=== PATIENT | male | born 1950 | race Caucasian/White ===

== ENCOUNTER 2018-07-29 05:42 | Outpatient (CLI) | payer MEDICARE ==
[2018-07-29 12:00] LABS: Hemoglobin 15.9 g/dL (14.0-18.0); Mean Corpuscular Hemoglobin 31.3 pg (27.0-31.0); Mean Platelet Volume 7.2 fL (7.4-10.4); Platelet Count 326 thou/uL (130-400); RBC Distribution Width 11.7 % (11.5-14.5); Red Blood Cell (RBC) Count 5.08 mill/uL (4.70-6.10); White Blood Cell (WBC) Count 7.4 thou/uL (4.8-10.8)
[2018-07-29 12:09] LABS: PTT 28.3 SEC (22.9-36.1)
[2018-07-29 12:19] LABS: Anion Gap 13 mmol/L (10-20); BUN (Urea Nitrogen) 14 mg/dL (8.4-25.7); Calc. Creatinine Clearance 0 mL/min (70-130); Calcium 9.5 mg/dL (7.8-10.44); Carbon Dioxide 25 mmol/L (23-31); Chloride 104 mmol/L (98-107); Estimated GFR-MDRD 75; Glucose 94 mg/dL (80-115); Potassium 3.8 mmol/L (3.5-5.1); Sodium 138 mmol/L (136-145)
== END 2018-07-29 05:43 | disposition home or self-care (01) ==
LOC: LABBT 05:42
PROVIDERS: ATTEND Surgery
DX: Z01.818 Encounter for other preprocedural examination (principal); M54.16 Radiculopathy, lumbar region; M48.061 Spinal stenosis, lumbar region without neurogenic claudication
CPT/HCPCS: 80048; 85027; 85610; 85730; 93005; 93010

== ENCOUNTER 2018-08-03 09:53 | Day surgery (SDC) | payer MEDICARE ==
[2018-08-03] MEDS ORDERED: Fentanyl 100 MCG/2 ML VIAL ONE ×3 (10:02→13:46)
[2018-08-03] MEDS ORDERED: Thrombin 5000 UNITS/5 ML VIAL ONE (10:03)
[2018-08-03] MEDS ORDERED: Sodium Chloride 0.9% 10 ML ONE (10:03)
[2018-08-03] MEDS ORDERED: Bacitracin Zinc Ointment 30 gm TUBE ONE (10:03)
[2018-08-03] MEDS ORDERED: CEFAZOLIN 2 GM/50 ML BAG ONE (10:20)
[2018-08-03] MEDS ORDERED: Ondansetron HCl/PF 4 MG/2 ML Vial IVP PRN (12:05)
[2018-08-03] MEDS ORDERED: Promethazine HCl 25 MG/ML VIAL SLOW IVP PRN (12:05)
[2018-08-03] MEDS ORDERED: Promethazine HCl 25 MG/ML VIAL IM PRN ×2 (12:05→12:28)
[2018-08-03] MEDS ORDERED: Morphine 2 MG/ML SYRINGE SLOW IVP PRN (12:28)
[2018-08-03] MEDS ORDERED: traMADol HCl 50 MG TAB PO PRN (12:28)
[2018-08-03] MEDS ORDERED: Acetaminophen 325 MG TAB PO PRN (12:28)
[2018-08-03] MEDS ORDERED: Bisacodyl 10 MG SUPP PR PRN (12:28)
[2018-08-03] MEDS ORDERED: Milk Of Magnesia 30 ML UDCUP PO PRN (12:28)
[2018-08-03] MEDS ORDERED: Mag-Al 1200 mg/1200 mg/30 ML UDCUP PO PRN (12:28)
[2018-08-03] MEDS ORDERED: Fleet Enema 133 ML BOT PR PRN (12:28)
[2018-08-03] MEDS ORDERED: Acetaminophen/Codeine 30-300mg Tablet PO PRN (12:28)
[2018-08-03] MEDS ORDERED: tiZANidine HCl 4 MG TAB PO PRN (12:28)
[2018-08-03] MEDS ORDERED: HYDROcodone/Acetaminophen 7.5/325 mg Tablet PO PRN (12:28)
[2018-08-03] MEDS ORDERED: CEFAZOLIN/Water 2 GM/20 ML SYRINGE SLOW IVP SCH (12:30)
[2018-08-03] MEDS ORDERED: Famotidine 20 MG TAB PO PRN (12:34)
--- NOTE | 2018-08-03 12:54 | OP ---
DATE OF PROCEDURE: 08/03/2018 OPERATING ROOM: OR 12. WOUND CLASSIFICATION: Type 1 wound. HOME COMPANION: Dilan Anderson PA-C. PREPROCEDURE DIAGNOSIS: Lumbar stenosis with low back and leg pain. POSTPROCEDURE DIAGNOSIS: Lumbar stenosis with low back and leg pain. PROCEDURE PERFORMED: L4-L5 and L5-S1 laminectomies, partial facetectomies, and foraminotomies. DESCRIPTION OF PROCEDURE: After informed consent was obtained from the patient, the patient was brought to OR 12. Proper patient pause and identification were carried out. He was placed in excellent endotracheal anesthesia and positioned prone on the OR table. All appropriate points were padded. We identified the L4, L5, and S1 dorsal spines, and a linear galo was made over this region. This area was sterilely cleansed, prepared, and draped. Proper patient pause and identification were carried out. The wound was then opened with a combination of sharp, monopolar, and blunt dissection. The L4, L5, and S1 dorsal spines and lamina were exposed. Localization film confirmed our area of interest. We performed L4, L5, and S1 laminectomies, partial facetectomies, and foraminotomies with excellent decompression of the common dural tube and the nerve roots. There was no spinal fluid leak. Hemostasis was maximized throughout. The wound was then closed in anatomic layers. The patient then emerged from anesthesia. Job ID: [id number]
[2018-08-03] MEDS ORDERED: Dexamethasone 20 MG/5 ML VIAL ONE (13:00)
[2018-08-03] MEDS ORDERED: ePHEDrine/0.9% NaCl/PF SYRINGE 50 mg/10 ml ONE (13:00)
[2018-08-03] MEDS ORDERED: Ondansetron PF 4 MG/2 ML Vial ONE (13:00)
[2018-08-03] MEDS ORDERED: Ketorolac Tromethamine 30 MG/ML VIAL ONE (13:00)
[2018-08-03] MEDS ORDERED: Lidocaine 1% PF 5 ML VIAL ONE (13:00)
[2018-08-03] MEDS ORDERED: Glycopyrrolate 0.2 MG/ML 5 ML SYRINGE ONE (13:00)
[2018-08-03] MEDS ORDERED: PROPOFOL 200 MG/20 ML VIAL ONE (13:00)
[2018-08-03] MEDS ORDERED: PHENYLEPHRINE-NS 100 MCG/ML 10 ML SYRINGE ONE (13:00)
[2018-08-03 15:23] VITALS: BMI 30.2
[2018-08-03] MEDS ORDERED: Morphine 4 MG/ML VIAL SLOW IVP PRN (16:10)
[2018-08-03] MEDS: CEFAZOLIN 2 GM/50 ML-DEXTROSE 2 GM in Premix Bag 1 BAG IVPB SCH (18:46)
[2018-08-03] MEDS ORDERED: Amlodipine 5 MG TAB PO SCH (21:00)
[2018-08-03] MEDS ORDERED: Atorvastatin Calcium 10 MG TAB PO SCH (21:00)
[2018-08-03] MEDS: Sodium Chloride 0.9% 1,000 ML IV SCH (23:07)
[2018-08-03] MEDS ORDERED: Tamsulosin HCl 0.4 MG CAP PO SCH (23:30)
[2018-08-04] MEDS: CEFAZOLIN 2 GM/50 ML-DEXTROSE 2 GM in Premix Bag 1 BAG IVPB SCH (02:41)
[2018-08-04] MEDS: Sodium Chloride 0.9% 1,000 ML IV SCH (02:41)
[2018-08-04 08:30] VITALS: BP 119/71; TEMP 97.9
[2018-08-04] MEDS ORDERED: Tamsulosin HCl 0.4 MG CAP PO SCH (09:00)
[2018-08-04] MEDS ORDERED: Prevnar 13-Val Conj/PF 0.5 ML SYRINGE IM ONE (09:00)
--- NOTE | 2018-08-04 09:37 | PRG ---
DATE OF SERVICE: 08/04/2018 Mr. Leal is postop day #1 from L4 to S1 decompression, doing very well this morning with improvement in his leg pain. He is already mobilizing and I am very pleased with his outcome at this point, went over the do's and don'ts in the postoperative period and follow up with me will be an outpatient. Again, I am very pleased. Job ID: [id number]
== END 2018-08-04 11:03 | disposition home or self-care (01) ==
LOC: SDC 09:53 → SURG A 12:41 → SDC 08-04 11:03
PROVIDERS: ATTEND Surgery
PROC: 01NB0ZZ Release Lumbar Nerve, Open Approach (ICD-10-PCS; principal; 2018-08-03)
DX: M48.061 Spinal stenosis, lumbar region without neurogenic claudication (principal); Z79.82 Long term (current) use of aspirin; Z79.899 Other long term (current) drug therapy
CPT/HCPCS: 63047; 63048; 76000; 90670; 96374 ×2; G0009; 90471; J0131; J1100; J1885; J2001; J2270; J2405; J2704; J3010; J3370; J3490